=== PATIENT | female | born 1955 | race Caucasian/White ===

== ENCOUNTER 2017-11-14 15:59 | Emergency (ER) | payer OTHER ==
[2017-11-14 16:14] VITALS: BP 147/85; PULSE 107; RESP 18; TEMP 98.2
[2017-11-14] MEDS ORDERED: PROPARACAINE 0.5% OPHTH DROPS 15 ML BTL BOTH EYES STA (17:10)
--- NOTE | 2017-11-14 17:51 | ED ---
General Adult HPI - General Chief complaint: Skin/Abscess/Foreign Body Stated complaint: rash Time Seen by Provider: 11/14/17 16:21 Source: patient, RN notes reviewed Mode of arrival: ambulatory Limitations: no limitations - History of Present Illness Initial comments: 62-year-old female presents to the emergency department for a chief complaint of rash 6 days. Patient states the rash is on the right side of her neck. Patient thinks it is shingles from what she has read online. Patient did have the chickenpox long-ago she believes. Patient denies any fevers or chills at home. Patient states she also has a stye on her right eye. Patient states the rash is painful and burning. She states sometimes it itches. Patient has no other complaints at this time including shortness of breath, chest pain, abdominal pain, nausea or vomiting, headache, or visual changes. - Related Data Home Medications Medication Instructions Recorded Confirmed Albuterol Inhaler [Ventolin Hfa 2 puff INHALATION RT-Q6H PRN 11/14/17 11/14/17 Inhaler] Budesonide/Formoterol Fumarate 2 puff INHALATION RT-BID 11/14/17 11/14/17 [Symbicort 80-4.5 Mcg Inhaler] Previous Rx's Medication Instructions Recorded Acetaminophen [Tylenol] 500 mg PO Q4-6H PRN #20 tab 11/14/17 Ibuprofen [Motrin] 600 mg PO Q8HR PRN #20 tab 11/14/17 predniSONE 50 mg PO DAILY #5 tablet 11/14/17 valACYclovir HCL [Valtrex] 1,000 mg PO Q8H 7 Days tablet 11/14/17 Allergies Allergy/AdvReac Type Severity Reaction Status Date / Time No Known Allergies Allergy Verified 11/14/17 16:29 Review of Systems ROS Statement: Those systems with pertinent positive or pertinent negative responses have been documented in the HPI. ROS Other: All systems not noted in ROS Statement are negative. Past Medical History Past Medical History: COPD History of Any Multi-Drug Resistant Organisms: None Reported Past Surgical History: No Surgical Hx Reported Past Psychological History: No Psychological Hx Reported Smoking Status: Current every day smoker Past Alcohol Use History: Rare Past Drug Use History: Marijuana General Exam Limitations: no limitations General appearance: alert, in no apparent distress Head exam: Present: atraumatic, normocephalic, normal inspection Eye exam: Present: normal appearance, PERRL, EOMI, other (Patient's eye was numbed with proparacaine and dyed with Fluorosciene stain. No dendritic changes noted in the eye. No abrasions. Negative Ashwin. There is a stye noted on the right upper eyelid. No current drainage into the eye.). Absent: scleral icterus, conjunctival injection, nystagmus ENT exam: Present: normal exam, normal oropharynx, mucous membranes moist, TM's normal bilaterally Neck exam: Present: normal inspection, full ROM. Absent: tenderness, meningismus, lymphadenopathy Respiratory exam: Present: normal lung sounds bilaterally. Absent: respiratory distress, wheezes, rales, rhonchi, stridor Cardiovascular Exam: Present: regular rate, normal rhythm, normal heart sounds. Absent: systolic murmur, diastolic murmur, rubs, gallop, clicks Skin exam: Present: rash (There is an erythematous rash on the right neck and right upper chest. Some lesions are vesicular with an erythematous base. Rash appears to be shingles-like in nature) Course Vital Signs 11/14/17 16:10 Temperature 98.2 F Pulse Rate 107 H Respiratory 18 Rate Blood Pressure 147/85 O2 Sat by Pulse 93 L Oximetry Medical Decision Making - Medical Decision Making 62-year-old female presents to the emergency department for chief complaint of rash 6 days. Rash is painful, burning, and itching. Patient also has a stye in her right eye. On exam there are multiple erythematous plaque like lesions noted on the right upper chest and slightly in the neck. Some lesions are vesicular with an erythematous base. No lesions cross the midline. Patient likely has shingles. Patient is also complaining of a stye in her right eye. Fluorescein stain was used to look in the eye. No dendritic changes were noted. Patient will be treated for both shingles and a stye. She will be given prednisone, Valtrex, and Motrin and Tylenol for the shingles. She will follow up with dermatology. She will also be given a referral to ophthalmology and was educated to use warm compresses on the stye. This stye has been there for over a week. She will return to the emergency Department if she has any worsening symptoms. Disposition Clinical Impression: Shingles, Hordeolum externum (stye) Disposition: HOME SELF-CARE Instructions: Shingles (ED), Stye (ED) Additional Instructions: Please take prednisone and Valtrex as discussed. You may take Motrin and Tylenol for pain. If you have itching you may take Benadryl [id number]. Use warm compresses unaffected eye for treatment for the stye. Follow-up with crankshaft straightener and loom mechanic in one to 2 days. Return to the emergency department if you have any worsening symptoms. Prescriptions: Acetaminophen [Tylenol] 500 mg PO Q4-6H PRN #20 tab PRN Reason: Pain Ibuprofen [Motrin] 600 mg PO Q8HR PRN #20 tab PRN Reason: Pain predniSONE 50 mg PO DAILY #5 tablet valACYclovir HCL [Valtrex] 1,000 mg PO Q8H 7 Days tablet Is patient prescribed a controlled substance at d/c from ED?: No Referrals: Noah Sullivan MD [Primary Care Provider] - 1-2 days Carlton Verduzco MD [STAFF PHYSICIAN] - 1-2 days Nicholas Reyes MD [STAFF PHYSICIAN] - 1-2 days Time of Disposition: 17:45
== END 2017-11-14 17:54 | disposition home or self-care (01) ==
LOC: EC 15:59
DX: B02.9 Zoster without complications (principal); H00.011 Hordeolum externum right upper eyelid; J44.9 Chronic obstructive pulmonary disease, unspecified; F17.200 Nicotine dependence, unspecified, uncomplicated; Z79.51 Long term (current) use of inhaled steroids
CPT/HCPCS: 99282